=== PATIENT | female | born 1985 | race Caucasian/White ===

== ENCOUNTER 2016-12-07 16:54 | Emergency (ER) | payer BC ==
[2016-12-07 17:03] VITALS: BP 110/72
--- NOTE | 2016-12-07 17:25 | UC ---
Throat Pain/Nasal [place] HPI - HPI Summary HPI Summary: ST with redness and white patches since yesterday. As a child got strep multiple times per year, but this feels milder (not as painful, no fever). Had tonsillectomy at age 17. Has 2.5-year-old and 8-month-old. - History of Current Complaint Chief Complaint: UCRespiratory Stated Complaint: SORE THROAT Time Seen by Provider: 12/07/16 16:58 Hx Obtained From: Patient Hx Last Menstrual Period: breast feeding no period since last june ?: No Onset/Duration: Gradual Onset, Lasting Days Severity: Mild Cough: None Associated Signs & Symptoms: Negative: Sinus Discomfort, Nasal Discharge, Fever , Vomiting, Rash - Allergies/Home Medications Allergies/Adverse Reactions: Allergies Allergy/AdvReac Type Severity Reaction Status Date / Time No Known Allergies Allergy Unverified 12/07/16 17:03 Home Medications: Home Medications Sertraline HCl [Zoloft] 100 mg PO 12/07/16 [History] PMH/Surg Hx/FS Hx/Imm Hx Endocrine History Of: Denies: Diabetes, Thyroid Disease Cardiovascular History Of: Denies: Cardiac Disorders, Hypertension Respiratory History Of: Denies: COPD, Asthma GI/ History Of: Denies: Ulcer Psychological History Of: Reports: Anxiety - mild, Depression - mild - Surgical History Surgical History: Yes Surgery Procedure, Year, and Place: cholecystectomy - 05/2014. 2013. tonsillectomy - 2001. wisdom tooth extraction - Family History Known Family History: Negative: Blood Disorder - Social History Occupation: Employed Part-time - childcare Lives: With Family Alcohol Use: None Substance Use Type: None Smoking Status (MU): Never Smoked Tobacco Have You Smoked in the Last Year: No - Immunization History Most Recent Influenza Vaccination: 08/2013 Most Recent Tetanus Shot: 04/06/14 Most Recent Pneumonia Vaccination: none Review of Systems Constitutional: Negative Skin: Negative Eyes: Negative ENT: Sore Throat Respiratory: Negative Cardiovascular: Negative Gastrointestinal: Negative Genitourinary: Negative Motor: Negative Neurovascular: Negative Musculoskeletal: Negative Neurological: Negative Psychological: Negative All Other Systems Reviewed And Are Negative: Yes Physical Exam Triage Information Reviewed: Yes Appearance: Well-Appearing, No Pain Distress, Well-Nourished Vital Signs: Initial Vital Signs Temp 97.2 F 12/07/16 16:58 Pulse 80 12/07/16 16:58 Resp 16 12/07/16 16:58 BP 110/72 12/07/16 16:58 Pulse Ox 97 12/07/16 16:58 Vital Signs Reviewed: Yes Eye Exam: Normal Eyes: Positive: Conjunctiva Clear ENT: Positive: Hearing grossly normal, Pharyngeal erythema - with slight exudate. Negative: Nasal drainage, Tonsillar swelling - s/p tonsillectomy Dental Exam: Normal Neck exam: Normal Neck: Positive: Supple, Nontender, No Lymphadenopathy Respiratory Exam: Normal Respiratory: Positive: Chest non-tender, Lungs clear, Normal breath sounds, No respiratory distress, No accessory muscle use Cardiovascular Exam: Normal Cardiovascular: Positive: RRR, No Murmur Musculoskeletal Exam: Normal Neurological Exam: Normal Psychological Exam: Normal Skin Exam: Normal Throat Pain/Nasal Course/Dx - Differential Dx/Diagnosis Provider Diagnoses: pharyngitis Discharge - Discharge Plan Condition: Stable Disposition: HOME Patient Education Materials: Pharyngitis (ED) Referrals: Nicole Martinez MD [Primary Care Provider] - Additional Instructions: Rapid strep negative. As long as your symptoms remain mild and gradually resolve , no further testing or treatment is needed. If you have new or worsening problems, please return here for care.
== END 2016-12-07 17:44 | disposition home or self-care (01) ==
LOC: UCEAST 16:54
DX: J02.9 Acute pharyngitis, unspecified (principal)
CPT/HCPCS: 87651; 99211; G0463

== ENCOUNTER 2020-01-09 11:49 | Emergency (ER) | payer BC ==
--- OUTSIDE RECORDS SUMMARY | 2020-01-09 11:56 | XMS REPORT | Continuity of Care Document ---
:1985 External Reference #:[id number] Author Name Petra Karnow, DO Address [address] [place] [id number] Problems Active Problems Provider Date Mixed anxiety and depressive disorder Onset: 06/29/2016 Inactive Problems Depressive disorder Onset: 05/25/2019 Inactive: 05/25/2019 Anxiety Onset: 05/25/2019 Inactive: 05/25/2019 H/O: risk factor Onset: 05/25/2019 Inactive: 05/25/2019 Social History Type Date Description Comments Sex Unknown Allergies, Adverse Reactions, Alerts Description No Known Drug Allergies Medications Active Medications SIG Qnty Indications Ordering Provider Date Escitalopram Oxalate 1 by mouth 90tabs Petra Lombardo, 11/10/2019 20mg every day DO Tablets History Medications No Active Medications Unknown 11/10/2019 - 11/10/2019 Medications Administered in Office Medication SIG Qnty Indications Ordering Provider Date DTaP Vaccine Younger Than 7 Unknown 12/26/2015 (Infanrix) Injection Immunizations CPT Code Status Date Vaccine Lot # [id number] Given 09/01/2019 Flu < 65 years 68026 Given 09/14/2018 Influenza Virus Vaccine, Quadrivalent, Split, Im Use 0.25ML 98028 Given 09/14/2018 Influenza Virus Vaccine, Quadrivalent, Split, Im Use 0.25ML 09304 Given 09/14/2018 Influenza Virus Vaccine, Quadrivalent, Split, Im Use 0.25ML 74083 Given 09/14/2018 Flu < 65 years 79376 Given 09/14/2018 Influenza Virus Vaccine, Quadrivalent, Split, Preservative Free 26148 Given 09/14/2018 Flumist 12964 Given 09/14/2018 Flu High Dose 10344 Given 09/14/2018 Influenza Virus Vaccine, Split, Preserv Free, Intradermal Use 13827 Given 10/28/2017 Influenza Virus Vaccine, Split, Preserv Free, Intradermal Use 83678 Given 10/28/2017 Flu High Dose 90062 Given 10/28/2017 Flumist 69560 Given 10/28/2017 Influenza Virus Vaccine, Quadrivalent, Split, Preservative Free 70092 Given 10/28/2017 Flu < 65 years 00421 Given 10/28/2017 Influenza Virus Vaccine, Quadrivalent, Split Virus, Im Use 0.5ML 67560 Given 08/28/2016 Influenza Virus Vaccine, Split, Preserv Free, Intradermal Use 41919 Given 08/28/2016 Flu High Dose 52931 Given 08/28/2016 Flumist 77112 Given 08/28/2016 Influenza Virus Vaccine, Quadrivalent, Split, Preservative Free 90528 Given 08/28/2016 Flu < 65 years 92154 Given 08/28/2016 Influenza Virus Vaccine, Quadrivalent, Split Virus, Im Use 0.5ML 78246 Given 12/26/2015 Tdap - Boostrix/Adacel 51798 Given 12/26/2015 Tdap - Boostrix/Adacel 77750 Given 12/26/2015 Tdap - Boostrix/Adacel 92120 Given 10/27/2014 Influenza Virus Vaccine, Quadrivalent, Split Virus, Im Use 0.5ML 92922 Given 10/27/2014 Flu < 65 years 99197 Given 10/27/2014 Influenza Virus Vaccine, Quadrivalent, Split, Preservative Free 56705 Given 10/27/2014 Flumist 34906 Given 10/27/2014 Flu High Dose Vital Signs Date Vital Result Comment 11/10/2019 3:53pm BP Systolic 114 mmHg BP Diastolic 72 mmHg Height 65.5 inches 5'5.50" Weight 141.00 lb Heart Rate 67 /min Body Temperature 98.1 F O2 % BldC Oximetry 97 % BMI (Body Mass Index) 23.1 kg/m2 05/25/2019 2:12pm BP Systolic 114 mmHg Height 65.00 inches 5'5.00" Weight 131.00 lb Heart Rate 75 /min Body Temperature 97.9 F O2 % BldC Oximetry 98 % BMI (Body Mass Index) 21.80 kg/m2 Results Description No Information Available Procedures Date Code Description Status 05/25/2019 11195 Brief Emotional/Behav Assessment W/ Scoring Doc Per Completed Standard Inst Medical Devices Description No Information Available Encounters Type Date Location Provider Dx Diagnosis Office Visit 11/10/2019 [facility] Petra Lombardo DO F41.1 Generalized anxiety 3:45p disorder Assessments Date Code Description Provider 11/10/2019 F41.1 Generalized anxiety disorder Petra Lombardo DO Plan of Treatment Future Appointment(s):12/22/2019 3:30 pm - Petra Lombardo, at [facility] Main - Petra Lombardo DOF41.1 Generalized anxiety disorderComments: Supportive listening Discussed that would not expect to see max effect from medication yet Would continue on the 20mg of LexaproWould begin exercising again We can add another medication if needed but we should give the Lexapro some time to work Also discussed the girls and how to maybe shift the thought process about their behaviors from "being so irritating" to may asking for some need to be met and we discussed how to do this and how to help them get more sleep and go to bed earlierwe will followup in 4-6weeks or sooner if neededAllNew Medication:Escitalopram Oxalate 20 mg - 1 by mouth every dayNo Active Medications -Comments:>25min visit with more than 50% of the time spent counseling Functional Status Description No Information Available Mental Status Description No Information Available Referrals Description No Information Available
[2020-01-09 12:01] VITALS: BP 105/78
--- NOTE | 2020-01-09 12:17 | UC ---
FLU HPI - HPI Summary HPI Summary: Patient is a 34yo female presenting with fever, chills, bodyaches, headache, mild dry cough, and nasal congestion since yesterday. Patient "thinks she might have the flu." Denies sore throat. Denies sob and wheezing. 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 Taking mucinex cold and sinus for symptom relief. - History of Current Complaint Chief Complaint: UCRespiratory Stated Complaint: FEVER BODYACHES COUGH RUNNY NOSE Hx Obtained From: Patient Hx Last Menstrual Period: 2 wks ago Pain Intensity: 2 Pain Scale Used: 0-10 Numeric - Allergy/Home Medications Allergies/Adverse Reactions: Allergies Allergy/AdvReac Type Severity Reaction Status Date / Time No Known Allergies Allergy Unverified 01/09/20 12:01 Home Medications: Home Medications DULoxetine DR CAP* [Cymbalta CAP*] 1 tab PO DAILY 01/09/20 [History Confirmed ] PMH/Surg Hx/FS Hx/Imm Hx - Surgical History Surgical History: Yes Surgery Procedure, Year, and Place: cholecystectomy - 05/2014. 2013. tonsillectomy - 2001. wisdom tooth extraction - Family History Known Family History: Negative: Blood Disorder - Social History Alcohol Use: Occasionally Substance Use Type: None Smoking Status (MU): Never Smoked Tobacco Have You Smoked in the Last Year: No - Immunization History Most Recent Influenza Vaccination: 08/2013 Most Recent Tetanus Shot: 04/06/14 Most Recent Pneumonia Vaccination: none Review of Systems All Other Systems Reviewed And Are Negative: Yes Constitutional: Positive: Fever, Chills ENT: Positive: Sinus Congestion Respiratory: Positive: Cough. Negative: Shortness Of Breath Cardiovascular: Positive: Negative Gastrointestinal: Positive: Negative Musculoskeletal: Positive: Myalgia Neurological/Mental Status: Positive: Headache Physical Exam - Summary Physical Exam Summary: Vital Signs Reviewed: Yes A+Ox3, no distress Eyes: Conjunctiva Clear ENT: Hearing grossly normal TM x 2 clear, moist, uvula midline, no exudate, no erythema Neck: Positive: Supple Respiratory: Positive: No respiratory distress, No accessory muscle use + CTA throughout no w/r Cardiovascular: RRR nl s1, s2 no m/r Musculoskeletal Exam: BUSCH x 4 without difficulty Neurological: Positive: Alert Psychological: Positive: age appropriate behavior Skin: Positive: no rash, no ecchymosis Vital Signs: Initial Vital Signs Temp 97.9 F 01/09/20 11:59 Pulse 74 01/09/20 11:59 Resp 18 01/09/20 11:59 BP 105/78 01/09/20 11:59 Pulse Ox 99 01/09/20 11:59 Flu Course/Dx - Course Course Of Treatment: Rapid flu A positive. I treated patient with Tamiflu and instructed to continue with symptomatic treatment. Instructed to follow up with pcp for any new or worsening symptoms. Patient voiced understanding and agreed with treatment plan. - Differential Dx/Diagnosis Differential Diagnosis/HQI/PQRI: Bronchitis, Influenza, Upper Respiratory Infection Provider Diagnosis: Influenza A Discharge ED - Sign-Out/Discharge Documenting (check all that apply): Patient Departure All imaging exams completed and their final reports reviewed: No Studies - Discharge Plan Condition: Stable Disposition: HOME Prescriptions: Oseltamivir CAP* [Tamiflu CAP*] 75 mg PO BID #10 cap Patient Education Materials: Influenza (ED) Referrals: Johnathan Camp MD [Primary Care Provider] - If Needed Additional Instructions: You tested positive for influenza today. Take tamiflu as prescribed. You may continue to take mucinex for symptom relief. Get plenty of rest and fluids. Follow up with your primary care provider if symptoms worsen or persist. - Billing Disposition and Condition Condition: STABLE Disposition: Home
[2020-01-09 12:28] LABS: Influenza A Molecular POSITIVE (Negative)
== END 2020-01-09 12:35 | disposition home or self-care (01) ==
LOC: UCEAST 11:49
DX: J10.1 Influenza due to other identified influenza virus with other respiratory manifestations (principal)
CPT/HCPCS: 99212; G0463